=== PATIENT | male | born 1990 | race Two or more races ===

== ENCOUNTER 2019-03-30 09:07 | Emergency (ER) | payer OTHER ==
--- NOTE | 2019-03-30 09:33 | ED Physician Documentation ---
PD HPI BACK PAIN - Stated complaint Stated Complaint: LOWER BACK PAIN ABD PAIN MALE - Chief complaint Chief Complaint: Back Pain - History obtained from History obtained from: Patient - History of Present Illness Timing - onset: How many days ago (2) Timing - duration: Days (2) Timing - details: Gradual onset, Waxing and waning Location: Lower, Right Quality: Pain, Aching. No: Spasm, Sharp Associated symptoms: Hematuria (today). No: Fever, Weakness, Numbness Improves with: No: Rest, Meds (Ibuprofen helped some but not well) Worsened by: No: Movement, Twisting Contributing factors: No: Lifting, Twisting, Trauma Similar symptoms before: Has not had sx before Recently seen: Not recently seen Review of Systems Constitutional: denies: Fever, Chills Nose: denies: Rhinorrhea / runny nose, Congestion Throat: denies: Sore throat Respiratory: denies: Cough GI: reports: Abdominal Pain (right flank to right lower abd.). denies: Abdominal Swelling, Nausea, Vomiting, Diarrhea : reports: Hematuria. denies: Dysuria, Frequency Skin: denies: Rash, Lesions Neurologic: denies: Generalized weakness, Focal weakness, Numbness PD PAST MEDICAL HISTORY - Past Medical History Past Medical History: No Cardiovascular: None Respiratory: None GI: None : None - Past Surgical History Past Surgical History: No - Present Medications Home Medications: Ambulatory Orders Medication Instructions Recorded Confirmed Hydrocodone/Acetaminophen [[place] 1 each PO Q6H PRN #20 tablet 03/30/19 5-325 Tablet] Naproxen 500 mg PO BID #20 tablet 03/30/19 Tamsulosin [Flomax] 0.4 mg PO DAILY #7 capsule 03/30/19 dexAMETHasone [Decadron] 4 mg PO DAILY #5 tablet 03/30/19 - Allergies Allergies/Adverse Reactions: Allergies Allergy/AdvReac Type Severity Reaction Status Date / Time No Known Drug Allergies Allergy Verified 03/30/19 09:15 - Social History Does the pt smoke?: No Smoking Status: Never smoker PD ED PE NORMAL - Vitals Vital signs reviewed: Yes - General General: Alert and oriented X 3, Well developed/nourished, Other (mild uncomfortable appearance.) - Cardiac Cardiac: RRR, No murmur - Respiratory Respiratory: Clear bilaterally - Abdomen Abdomen: Normal bowel sounds, Soft, Non tender, Non distended - Male Male : Deferred - Rectal Rectal: Deferred - Back Back: No spinal TTP, Other (some tenderness right flank to lumbar area to percussion, not palpation. ) - Derm Derm: Normal color, No rash Results - Vitals Vitals: Vital Signs - 24 hr 03/30/19 03/30/19 09:12 12:15 Temperature 36.7 C Heart Rate 74 70 Respiratory 19 16 Rate Blood Pressure 113/82 H 118/71 O2 Saturation 98 100 Oxygen O2 Source Room air - Labs Labs: Laboratory Tests 03/30/19 03/30/19 03/30/19 10:20 10:30 10:30 WBC 9.8 RBC 5.41 Hgb 15.7 Hct 47.8 MCV 88.4 MCH 29.0 MCHC 32.8 RDW 13.1 Plt Count 302 MPV 10.8 Neut # (Auto) 6.0 Lymph # (Auto) 2.6 [place] # (Auto) 0.8 Eos # (Auto) 0.2 Baso # (Auto) 0.1 Absolute Nucleated RBC 0.00 Nucleated RBC % 0.0 Sodium 142 Potassium 3.9 Chloride 104 Carbon Dioxide 29 Anion Gap 9.0 BUN 15 Creatinine 1.2 Estimated GFR (MDRD) 73 L Glucose 82 Calcium 9.5 Total Bilirubin 0.6 AST 18 ALT 15 Alkaline Phosphatase 69 Total Protein 8.2 Albumin 4.6 Globulin 3.6 Albumin/Globulin Ratio 1.3 Lipase 25 Urine Color YELLOW Urine Clarity CLEAR Urine pH 6.0 Ur Specific [place] 1.025 Urine Protein TRACE Urine Glucose (UA) NEGATIVE Urine Ketones NEGATIVE Urine Occult Blood LARGE H Urine Nitrite NEGATIVE Urine Bilirubin NEGATIVE Urine Urobilinogen 0.2 (NORMAL) Ur Leukocyte Esterase NEGATIVE Urine RBC 11-25 H Urine WBC 0-3 Ur Squamous Epith Cells NONE SEEN Urine Bacteria Rare Ur Microscopic Review INDICATED Urine Culture Comments NOT INDICATED - Rads (name of study) KUB CT Radiology: Prelim report reviewed (4 mm stone proximal third ureter with mild hydro. ), EMP read contemporaneously, See rad report PD MEDICAL DECISION MAKING - ED course Complexity details: reviewed results (4 mm stone proximal third right ureter with mild hydronephrosis. ), considered differential, d/w patient Departure - Departure Disposition: 01 Home, Self Care Clinical Impression: Ureterolithiasis, Right sided abdominal pain Condition: Stable Record reviewed to determine appropriate education?: Yes Instructions: ED Stone Renal W Colic Follow-Up: JEOVANY Currie [Provider Group] Prescriptions: dexAMETHasone [Decadron] 4 mg PO DAILY #5 tablet Hydrocodone/Acetaminophen [[place] 5-325 Tablet] 1 each PO Q6H PRN #20 tablet PRN Reason: Pain Naproxen 500 mg PO BID #20 tablet Tamsulosin [Flomax] 0.4 mg PO DAILY #7 capsule Comments: You are passing a small kidney stone which is almost shelter down the right ureter. Stay well-hydrated. Use anti-inflammatories of naproxen twice daily and Decadron daily to help with inflammation of the ureter and promote passage. Tamsulosin reduce his ureter spasms and tries to promote passage as well. Add Tylenol or hydrocodone as needed for pain. Activity as tolerated based on comfort. Follow-up with your primary care in the next 2 to 3 days if not improved. You may notice some blood in your urine and that would be common enough. Discharge Date/Time: 03/30/19 12:15
[2019-03-30] MEDS ORDERED: NAPROXEN 250 MG TABLET PO STA (10:18)
[2019-03-30] MEDS ORDERED: ACETAMINOPHEN 325 MG TABLET PO STA (10:18)
[2019-03-30 10:35] LABS: BASOPHILS # (AUTO) 0.1 10^3/uL (0.0-0.1); BASOPHILS % (AUTO) 0.8 %; EOSINOPHILS # (AUTO) 0.2 10^3/uL (0.0-0.7); HGB - HEMOGLOBIN 15.7 g/dL (14.0-18.0); LYMPHOCYTES # (AUTO) 2.6 10^3/uL (1.5-3.5); LYMPHOCYTES % (AUTO) 26.2 %; MEAN CORPUSCULAR HGB CONC 32.8 g/dL (32.0-36.0); MEAN CORPUSCULAR VOLUME 88.4 fL (80.0-94.0); MEAN PLATELET VOLUME 10.8 fL (7.4-11.4); MONOCYTES # (AUTO) 0.8 10^3/uL (0.0-1.0); MONOCYTES % (AUTO) 8.2 %; PLT - PLATELET COUNT 302 10^3/uL (130-450); RED BLOOD COUNT 5.41 10^6/uL (4.70-6.10); RED CELL DISTRIBUTION WIDTH 13.1 % (12.0-15.0); WHITE BLOOD COUNT 9.8 x10^3/uL (4.8-10.8)
[2019-03-30 10:41] LABS: BILIRUBIN,URINE NEGATIVE (NEGATIVE); GLUCOSE, URINE (UA) NEGATIVE (NEGATIVE); KETONES,URINE (UA) NEGATIVE (NEGATIVE); LEUKOCYTE ESTERASE, URINE NEGATIVE (NEGATIVE); NITRITE,URINE NEGATIVE (NEGATIVE); OCCULT BLOOD,URINE LARGE (NEGATIVE); PROTEIN,URINE TRACE mg/dL (NEGATIVE); UROBILINOGEN,URINE 0.2 (NORMAL) E.U./dL (NORMAL)
[2019-03-30 10:43] LABS: CLARITY,URINE CLEAR (CLEAR)
[2019-03-30 10:48] LABS: BACTERIA,URINE Rare /HPF (None Seen); SQUAMOUS EPITHELIAL CELL,UR NONE SEEN (<= Few)
[2019-03-30 10:48] LABS: ALBUMIN 4.6 g/dL (3.2-5.5); ALBUMIN/GLOBULIN RATIO 1.3 (1.0-2.2); BILIRUBIN,TOTAL 0.6 mg/dL (0.2-1.0); CALCIUM 9.5 mg/dL (8.5-10.3); CREATININE 1.2 mg/dL (0.6-1.2); TOTAL PROTEIN 8.2 g/dL (6.7-8.2)
--- NOTE | 2019-03-30 11:05 | CT Report ---
Reason: right flank and right abd pain for few days Procedure Date: 03/30/2019 Accession Number: [id number] / [id number] Procedure: CT - Abdomen/Pelvis WO CPT Code: FULL RESULT: EXAM: CT ABDOMEN AND PELVIS (CT KUB) EXAM DATE: 03/30/2019 10:41 AM. CLINICAL HISTORY: Right flank and right abdomen pain for few days. COMPARISONS: None. TECHNIQUE: Routine axial helical CT imaging was performed through the abdomen and pelvis without IV contrast. Reconstructions: Coronal and sagittal. In accordance with CT protocol optimization, one or more of the following dose reduction techniques were utilized for this exam: automated exposure control, adjustment of mA and/or KV based on patient size, or use of iterative reconstructive technique. FINDINGS: Lung Bases: Unremarkable. Right Kidney/Ureter: There is a 4 mm stone within the proximal right ureter, series 3 image 204. This is causing mild right-sided hydronephrosis and hydroureter. No additional right-sided nephroliths. Left Kidney/Ureter: No stones, hydronephrosis, or hydroureter. No perinephric fat stranding. Other Solid Organs: Noncontrast images of the solid organs are grossly unremarkable. Gallbladder/Bile Ducts: Unremarkable. Peritoneal Cavity: No free fluid, free air or mimi adenopathy. Bowel is grossly unremarkable. Pelvic Organs: No bladder stones or wall thickening. Noncontrast images of the visualized pelvic organs are unremarkable. Vasculature: Unremarkable. Other: None. IMPRESSION: 4 mm stone in the proximal right ureter, causing mild right-sided hydronephrosis and hydroureter. Examination elsewhere appears unremarkable. RAD[facility]
[2019-03-30 12:16] VITALS: BP 118/71
== END 2019-03-30 12:15 | disposition home or self-care (01) ==
LOC: ED 09:07
DX: N13.2 Hydronephrosis with renal and ureteral calculous obstruction (principal)
CPT/HCPCS: 36415; 74176; 80053; 81001; 83690; 85025; 99284; A9270; 81003; 87086